=== PATIENT | female | born 1995 | race Two or more races ===

== ENCOUNTER 2016-12-31 18:49 | Emergency (ER) | payer MEDICAID ==
[~2016-12-31] VITALS: Ht 165.1 cm; Wt 89.4 kg
[~2016-12-31 18:49] MED LIST: NORCO 5-325 TA1 EACH ORAL
[2016-12-31 19:09] VITALS: BP 138/93
[2016-12-31] MEDS ORDERED: Tetanus/Diptheria/Pertussis Vaccine 0.5ml Syr IM ONE (19:15)
[2016-12-31] MEDS ORDERED: Norco 5mg/325mg tab PO ONE (19:15)
[2016-12-31] MEDS ORDERED: Lidocaine 1% Plain 30 ml INJ ONE (21:15)
[2016-12-31] MEDS ORDERED: Bacitracin Oint UD TOPIC ONE ×2 (21:27→21:28)
[2016-12-31] MEDS ORDERED: NORCO 5-325 TA1 EACH ORAL (21:56)
[2016-12-31] MEDS ORDERED: IBUPROFEN600 MG ORAL (21:56)
[2016-12-31 22:03] VITALS: BP 116/75
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
== END 2016-12-31 22:03 | disposition home or self-care (01) ==
LOC: EMR 19:25
DX: S01.112A Laceration without foreign body of left eyelid and periocular area, initial encounter (principal); S00.83XA Contusion of other part of head, initial encounter; Y08.89XA Assault by other specified means, initial encounter; Y92.9 Unspecified place or not applicable; Z23 Encounter for immunization
CPT/HCPCS: 12011; 70450; 70486; 90471; 90715; 99283; J2001